=== PATIENT | female | born 1970 | race African-American/Black ===

== ENCOUNTER 2018-12-26 19:28 | Emergency (ER) | payer MEDICAID ==
[~2018-12-26] VITALS: Ht 167.6 cm; Wt 72.0 kg
[2018-12-26 19:53] LABS: BASOPHILS # (AUTO) 0.02 x10^3/uL (0-0.1); BASOPHILS % (AUTO) 0 % (0-1); EOSINOPHILS # (AUTO) 0.03 x10^3/uL (0-0.4); EOSINOPHILS % (AUTO) 0 % (1-7); LYMPHOCYTES # (AUTO) 1.75 x10^3/uL (1-3.4); LYMPHOCYTES % (AUTO) 19 % (22-44); MD NO; MEAN CORPUSCULAR HEMOGLOBIN 31.1 pg (27.0-34.8); MEAN CORPUSCULAR HGB CONC 33.9 g/dL (32.4-35.8); MEAN CORPUSCULAR VOLUME 91.7 fL (80-100); MEAN PLATELET VOLUME 7.7 fL (7.4-10.4); MONOCYTES # (AUTO) 0.54 x10^3/uL (0.2-0.8); MONOCYTES % (AUTO) 6 % (2-9); NEUTROPHILS # (AUTO) 6.81 x10^3/uL (1.8-6.8); NEUTROPHILS % (AUTO) 74 % (42-75); PLATELET COUNT 271 x10^3/uL (130-400); RED CELL DISTRIBUTION WIDTH 15.4 % (9.6-15.2)
[2018-12-26 20:02] LABS: ALANINE AMINOTRANSFERASE 17 U/L (12-78); ALBUMIN 3.6 g/dL (3.4-5.0); ANION GAP 6 mmol/L (5-15); CALCIUM 8.7 mg/dL (8.5-10.1); CHLORIDE 109 mmol/L (98-107); CREATININE 0.76 mg/dL (0.55-1.02)
[2018-12-26 20:06] LABS: ALKALINE PHOSPHATASE 71 U/L (45-117); BILIRUBIN,TOTAL 0.6 mg/dL (0.2-1.0); TOTAL PROTEIN 7.6 g/dL (6.4-8.2)
--- NOTE | 2018-12-26 20:51 | NUR ---
TO ROOM FROM LOBBY. NAD.
--- NOTE | 2018-12-26 20:53 | NUR ---
UA SENT TO LAB
[2018-12-26 21:04] LABS: MICROSCOPIC AUTO
[2018-12-26 21:10] LABS: CULTURE INDICATED? YES
[2018-12-26] MEDS ORDERED: MORPHINE SULFATE 4 MG/ML, 1ML IVPush PRN (21:30)
[2018-12-26] MEDS ORDERED: CEFTRIAXONE PMX 1GM/50ML 50 ML IV ONE (21:30)
[2018-12-26] MEDS ORDERED: KETOROLAC 30 MG/1 ML IVPush ONE (21:30)
[2018-12-26] MEDS ORDERED: SODIUM CHLORIDE 0.9% 1,000ML IV ONE (21:30)
[2018-12-26] MEDS ORDERED: ONDANSETRON 2MG/ML, 2ML IVPush ONE (21:30)
[2018-12-26] MEDS ORDERED: KETOROLAC 30 MG/1 ML ONE ×2 (21:32→22:33)
[2018-12-26] MEDS ORDERED: ONDANSETRON 2MG/ML, 2ML ONE (21:32)
[2018-12-26] MEDS ORDERED: MORPHINE SULFATE 4 MG/ML, 1ML ONE (21:32)
[2018-12-26] MEDS ORDERED: CEFTRIAXONE PMX 1GM/50ML 0 ML ONE (21:32)
--- NOTE | 2018-12-26 21:34 | NUR ---
JUAN ANTONIO RN: PT IN CT SCAN.
--- NOTE | 2018-12-26 21:45 | NUR ---
SBAR report received from RN, Keena. Pt back to room from imaging.
--- NOTE | 2018-12-26 21:47 | NUR ---
RN at bedside to start PIV and medicate pt, per DEC.
[2018-12-26] MEDS ORDERED: PLEASE ENTER ALLERGIES MC SCH (22:00)
--- NOTE | 2018-12-26 22:11 | NUR ---
Dr. Spencer at bedside to discuss ED findings and POC.
[2018-12-26] MEDS ORDERED: KETOROLAC 30 MG/1 ML IM ONE (22:30)
[2018-12-26] MEDS ORDERED: HYDROcodone/APAP 5/325 TABLET PO ONE (22:30)
[2018-12-26] MEDS ORDERED: ONDANSETRON ODT 4 MG PO ONE (22:30)
[2018-12-26] MEDS ORDERED: CEFDINIR 300 MG CAPSULE PO SCH (22:30)
[2018-12-26] MEDS ORDERED: CEFDINIR 300 MG CAPSULE ONE (22:33)
[2018-12-26] MEDS ORDERED: HYDROcodone/APAP 5/325 TABLET ONE (22:33)
[2018-12-26] MEDS ORDERED: ONDANSETRON ODT 4 MG ONE (22:33)
--- NOTE | 2018-12-26 22:48 | NUR ---
Pt medicated per DEC. POC disussed.
[2018-12-26 23:03] VITALS: BP 142/83
--- NOTE | 2018-12-26 23:03 | NUR ---
Patient/Caregiver given discharge instructions and they have confirmed that they understand the instructions. Patient ambulatory with steady gait.
[2018-12-26] MEDS ORDERED: CEFDINIR 300 MG CAPSULE PO ONE (23:30)
== END 2018-12-26 23:07 | disposition home or self-care (01) ==
LOC: ED 22:50
DX: N10 Acute pyelonephritis (principal); N28.1 Cyst of kidney, acquired
CPT/HCPCS: 36415; 74018; 74176; 76770; 80053; 81001; 84703; 85025; 87077; 87086; 96372; 99284; J1885; Q0162; 87186

== ENCOUNTER 2020-08-03 16:29 | Inpatient (IN) | payer MEDICAID ==
[~2020-08-03] VITALS: Ht 172.7 cm; Wt 101.1 kg
[2020-08-03] MEDS ORDERED: MORPHINE SULFATE 4 MG/ML, 1ML IVPush PRN (17:00)
[2020-08-03] MEDS ORDERED: SODIUM CHLORIDE 0.9% 1,000ML IVBOLUS ONE (17:00)
[2020-08-03] MEDS ORDERED: ONDANSETRON ODT 4 MG PO ONE (17:00)
[2020-08-03] MEDS ORDERED: MORPHINE SULFATE 4 MG/ML, 1ML ONE (17:15)
[2020-08-03] MEDS ORDERED: ONDANSETRON ODT 4 MG ONE (17:15)
[2020-08-03 17:26] LABS: BASOPHILS % (AUTO) 0 % (0-1); EOSINOPHILS % (AUTO) 0 % (1-7); LYMPHOCYTES % (AUTO) 10 % (22-44); MEAN CORPUSCULAR HEMOGLOBIN 30.3 pg (27.0-34.8); MEAN CORPUSCULAR HGB CONC 33.3 g/dL (32.4-35.8); MEAN PLATELET VOLUME 7.8 fL (7.4-10.4); MONOCYTES % (AUTO) 9 % (2-9); NEUTROPHILS % (AUTO) 80 % (42-75); PLATELET COUNT 296 x10^3/uL (130-400); RED BLOOD COUNT 4.66 x10^6/uL (3.82-5.3)
[2020-08-03 17:27] LABS: MD NO
[2020-08-03 17:37] LABS: ALBUMIN 3.6 g/dL (3.4-5.0); ANION GAP 9 mmol/L (5-15); CALCIUM 9.3 mg/dL (8.5-10.1); CHLORIDE 104 mmol/L (98-107); CREATININE 1.01 mg/dL (0.55-1.02)
[2020-08-03 17:51] LABS: MICROSCOPIC INDICATED
--- NOTE | 2020-08-03 18:07 | NUR ---
dr patel in room updating patient.
[2020-08-03] MEDS ORDERED: BUPR150T73 PO (18:09)
[2020-08-03] MEDS ORDERED: BUSP10TA PO (18:09)
[2020-08-03] MEDS ORDERED: AMIT50TA PO (18:10)
[2020-08-03] MEDS ORDERED: LAMO25TB2 PO (18:10)
[2020-08-03] MEDS ORDERED: CEFTRIAXONE PMX 1GM/50ML 50 ML ONE (18:13)
--- NOTE | 2020-08-03 18:16 | NUR ---
report given to NORM blue for break.
--- NOTE | 2020-08-03 18:18 | NUR ---
BREAK RN: PT MEDICATED TO DEC. CALL LIGHT AND PHONE IN HAND.
[2020-08-03] MEDS ORDERED: CEFTRIAXONE PMX 1GM/50ML 50 ML IV ONE (18:30)
--- NOTE | 2020-08-03 19:06 | NUR ---
PT TALKING ON PHONE IN ROOM. VS STABLE. NO ACUTE DISTRESSN NOTED. CALL LIGHT IN PLACE. WILL CONTINUE TO MONITOR.
[2020-08-03] MEDS ORDERED: IBUPROFEN 600 MG TABLET PO PRN (19:30)
[2020-08-03] MEDS ORDERED: ONDANSETRON ODT 4 MG PO PRN (19:30)
[2020-08-03] MEDS ORDERED: ONDANSETRON 2MG/ML, 2ML IVPush PRN (19:30)
[2020-08-03 20:12] VITALS: BP 164/95
[2020-08-03] MEDS ORDERED: ENALAPRILAT 1.25 MG/ML, 2ML IV PRN (20:30)
[2020-08-03] MEDS: BUPROPION SR 150 MG TABLET PO SCH (20:45)
[2020-08-03] MEDS: SODIUM CHLORIDE 0.9% 1,000 ML IV SCH (20:45)
[2020-08-03] MEDS: LAMOTRIGINE 25 MG TABLET PO SCH (20:45)
[2020-08-03] MEDS: BUSPIRONE 10 MG TABLET PO SCH (20:45)
[2020-08-03] MEDS: AMITRIPTYLINE 50 MG TABLET PO SCH (20:45)
[2020-08-03] MEDS: ACETAMINOPHEN 325 MG TABLET PO PRN (20:45)
[2020-08-03] MEDS: ENOXAPARIN 40 MG/0.4 ML SQ SCH (20:45)
[2020-08-04 00:37] VITALS: BP 144/87
[2020-08-04 05:02] LABS: BASOPHILS % (AUTO) 0 % (0-1); EOSINOPHILS % (AUTO) 0 % (1-7); LYMPHOCYTES % (AUTO) 12 % (22-44); MEAN CORPUSCULAR HEMOGLOBIN 30.4 pg (27.0-34.8); MEAN CORPUSCULAR HGB CONC 32.7 g/dL (32.4-35.8); MEAN PLATELET VOLUME 7.9 fL (7.4-10.4); MONOCYTES % (AUTO) 11 % (2-9); NEUTROPHILS % (AUTO) 76 % (42-75); PLATELET COUNT 257 x10^3/uL (130-400); RED BLOOD COUNT 3.97 x10^6/uL (3.82-5.3)
[2020-08-04] MEDS: ACETAMINOPHEN 325 MG TABLET PO PRN ×2 (05:08→09:26)
[2020-08-04] MEDS: SODIUM CHLORIDE 0.9% 1,000 ML IV SCH ×3 (05:08→21:14)
[2020-08-04 05:11] LABS: ANION GAP 7 mmol/L (5-15); CALCIUM 8.1 mg/dL (8.5-10.1); CHLORIDE 108 mmol/L (98-107); CREATININE 0.88 mg/dL (0.55-1.02); MD NO
[2020-08-04 06:48] VITALS: BP 127/83
[2020-08-04] MEDS: BUPROPION SR 150 MG TABLET PO SCH ×2 (09:19→21:13)
[2020-08-04] MEDS: BUSPIRONE 10 MG TABLET PO SCH ×2 (09:19→21:13)
[2020-08-04] MEDS: LAMOTRIGINE 25 MG TABLET PO SCH ×3 (09:19→21:13)
[2020-08-04 13:20] VITALS: BP 124/84
[2020-08-04] MEDS: ACETAMINOPHEN 325 MG TABLET PO SCH ×3 (14:00→21:13)
[2020-08-04] MEDS ORDERED: OXYcodone IR 5MG TABLET PO PRN (14:00)
[2020-08-04] MEDS ORDERED: CEFTRIAXONE PMX 1GM/50ML 50 ML IV SCH (15:00)
[2020-08-04 18:55] VITALS: BP 127/82
[2020-08-04] MEDS: AMITRIPTYLINE 50 MG TABLET PO SCH (21:13)
[2020-08-04] MEDS: ENOXAPARIN 40 MG/0.4 ML SQ SCH (21:14)
[2020-08-05] MEDS: ACETAMINOPHEN 325 MG TABLET PO SCH ×4 (00:16→12:08)
[2020-08-05 00:17] VITALS: BP 132/85
[2020-08-05] MEDS: SODIUM CHLORIDE 0.9% 1,000 ML IV SCH ×2 (04:45→12:09)
[2020-08-05 05:11] LABS: ANION GAP 4 mmol/L (5-15); BASOPHILS % (AUTO) 1 % (0-1); CALCIUM 8.2 mg/dL (8.5-10.1); CHLORIDE 113 mmol/L (98-107); EOSINOPHILS % (AUTO) 1 % (1-7); LYMPHOCYTES % (AUTO) 21 % (22-44); MEAN CORPUSCULAR HEMOGLOBIN 30.9 pg (27.0-34.8); MEAN CORPUSCULAR HGB CONC 33.1 g/dL (32.4-35.8); MEAN PLATELET VOLUME 7.9 fL (7.4-10.4); MONOCYTES % (AUTO) 12 % (2-9); NEUTROPHILS % (AUTO) 66 % (42-75); PLATELET COUNT 273 x10^3/uL (130-400); RED BLOOD COUNT 3.97 x10^6/uL (3.82-5.3); RED CELL DISTRIBUTION WIDTH 16.3 % (9.6-15.2)
[2020-08-05 05:12] LABS: CREATININE 0.86 mg/dL (0.55-1.02)
[2020-08-05 05:22] LABS: MD NO
[2020-08-05 06:53] VITALS: BP 132/85
[2020-08-05] MEDS: LAMOTRIGINE 25 MG TABLET PO SCH (08:11)
[2020-08-05] MEDS: BUPROPION SR 150 MG TABLET PO SCH (08:11)
[2020-08-05] MEDS: BUSPIRONE 10 MG TABLET PO SCH (08:11)
[2020-08-05] MEDS ORDERED: CEPH750C9 PO (12:12)
[2020-08-05 12:54] VITALS: BP 138/87
== END 2020-08-05 13:32 | disposition home or self-care (01) | DRG 872 ==
LOC: ED 18:16 → EDIP 18:22 → 3N 20:11 → DCLOUNGE 08-05 13:20
PROVIDERS: ADMIT Family Medicine; ATTEND Family Medicine
DX: A41.9 Sepsis, unspecified organism (principal); N10 Acute pyelonephritis; E87.1 Hypo-osmolality and hyponatremia; F41.9 Anxiety disorder, unspecified; Z87.442 Personal history of urinary calculi
CPT/HCPCS: 36415; 76770; 80048; 81001; 82040; 83605; 84145; 84703; 85025; 87040; 87077; 87086; 87186; 93005; G0378; J0696; J1650; Q0162; J2270; J7030

== ENCOUNTER 2020-10-06 15:15 | Emergency (ER) | payer MEDICAID ==
[~2020-10-06] VITALS: Ht 172.7 cm; Wt 95.8 kg
[~2020-10-06 15:15] MED LIST: AMIT50TA PO; BUPR150T73 PO; BUSP10TA PO; CEPH750C9 PO; LAMO25TB2 PO
[2020-10-06] MEDS ORDERED: ONDANSETRON 2MG/ML, 2ML IVPush ONE (15:30)
[2020-10-06] MEDS ORDERED: KETOROLAC 30 MG/1 ML IVPush ONE (15:30)
[2020-10-06] MEDS ORDERED: MORPHINE SULFATE 4 MG/ML, 1ML IVPush PRN (15:30)
[2020-10-06] MEDS ORDERED: SODIUM CHLORIDE 0.9% 1,000ML IVBOLUS ONE (15:30)
[2020-10-06] MEDS ORDERED: SODIUM CHLORIDE FLUSH 10ML SYR IVF ONE (15:30)
[2020-10-06 16:06] LABS: BASOPHILS % (AUTO) 1 % (0-1); EOSINOPHILS % (AUTO) 0 % (1-7); LYMPHOCYTES % (AUTO) 27 % (22-44); MD NO; MEAN CORPUSCULAR HEMOGLOBIN 30.4 pg (27.0-34.8); MEAN CORPUSCULAR HGB CONC 33.1 g/dL (32.4-35.8); MONOCYTES % (AUTO) 8 % (2-9); NEUTROPHILS % (AUTO) 64 % (42-75); PLATELET COUNT 385 x10^3/uL (130-400); RED BLOOD COUNT 4.74 x10^6/uL (3.82-5.3); RED CELL DISTRIBUTION WIDTH 16.1 % (9.6-15.2)
[2020-10-06 16:15] LABS: ALBUMIN 3.6 g/dL (3.4-5.0); ANION GAP 5 mmol/L (5-15); CALCIUM 10.7 mg/dL (8.5-10.1); CHLORIDE 107 mmol/L (98-107)
[2020-10-06 16:21] LABS: ALANINE AMINOTRANSFERASE 20 U/L (12-78); ALKALINE PHOSPHATASE 90 U/L (45-117); BILIRUBIN,TOTAL 0.5 mg/dL (0.2-1.0); TOTAL PROTEIN 8.1 g/dL (6.4-8.2)
[2020-10-06 16:26] LABS: MICROSCOPIC AUTO
[2020-10-06] MEDS ORDERED: CEFTRIAXONE PMX 1GM/50ML 50 ML IV ONE (17:00)
--- NOTE | 2020-10-06 17:02 | NUR ---
gin clerk: pt from lobby to room 31
[2020-10-06] MEDS ORDERED: KETOROLAC 30 MG/1 ML ONE (17:34)
[2020-10-06] MEDS ORDERED: CEFTRIAXONE PMX 1GM/50ML 50 ML ONE (17:34)
[2020-10-06] MEDS ORDERED: MORPHINE SULFATE 4 MG/ML, 1ML ONE (17:35)
[2020-10-06] MEDS ORDERED: ONDANSETRON 2MG/ML, 2ML ONE (17:35)
[2020-10-06 18:31] VITALS: BP 156/78
== END 2020-10-06 18:49 | disposition home or self-care (01) ==
LOC: ED 17:57
DX: N10 Acute pyelonephritis (principal); R10.9 Unspecified abdominal pain; F17.200 Nicotine dependence, unspecified, uncomplicated
CPT/HCPCS: 36415; 74176; 80053; 81001; 83605; 84145; 84703; 85025; 87040; 87077; 87086; 87186; 96365; 96375; 99284; J0696; J1885; J2270; J2405; J7030

== ENCOUNTER 2020-10-18 07:46 | Emergency (ER) | payer MEDICAID ==
[~2020-10-18] VITALS: Ht 172.7 cm; Wt 94.8 kg
[2020-10-18 07:48] VITALS: BP 139/80
[2020-10-18] MEDS ORDERED: MAALOX/HYOSCYAMINE/LIDOCAINE 45 ML BTL ONE (08:05)
--- NOTE | 2020-10-18 08:15 | NUR ---
PT C/O EPIGASTRIC PAIN FOR LAST 3 DAYS WITH N/V THIS AM THAT HAS RESOLVED. PT GIVEN GI COCKTAIL HERE WITH SIGNIFICANT RELEIF OF PAIN. PROVIDER AWARE. WAITING FOR LABS AND US. PT REPORTS BEING UNDER A LOT OF STRESS LATELY WITH BEING IN A DRUG TREATMENT PROGRAM.
[2020-10-18] MEDS ORDERED: ELDERBERRY PO (08:30)
[2020-10-18] MEDS ORDERED: BUSP30TA PO (08:30)
[2020-10-18] MEDS ORDERED: ZINC PO (08:30)
[2020-10-18] MEDS ORDERED: FLAX10004 PO (08:30)
[2020-10-18] MEDS ORDERED: TURMERIC PO (08:30)
[2020-10-18] MEDS ORDERED: BACI1TAB3 PO (08:30)
[2020-10-18] MEDS ORDERED: MAGN500T PO (08:30)
[2020-10-18] MEDS ORDERED: MAALOX/HYOSCYAMINE/LIDOCAINE 45 ML BTL PO ONE (08:30)
[2020-10-18] MEDS ORDERED: GARLIQUE PO (08:30)
[2020-10-18] MEDS ORDERED: MULT-248 PO (08:30)
[2020-10-18] MEDS ORDERED: APPLE CIDER VINEGAR PO (08:30)
[2020-10-18] MEDS ORDERED: ASCO100018 PO (08:30)
[2020-10-18] MEDS ORDERED: AMLO-150 PO (08:30)
[2020-10-18] MEDS ORDERED: BIOT800T PO (08:30)
[2020-10-18] MEDS ORDERED: CHOL10003 PO (08:30)
[2020-10-18 08:49] LABS: ALBUMIN 3.3 g/dL (3.4-5.0); ANION GAP 7 mmol/L (5-15); CALCIUM 8.6 mg/dL (8.5-10.1); CHLORIDE 112 mmol/L (98-107)
[2020-10-18 08:53] LABS: ALANINE AMINOTRANSFERASE 20 U/L (12-78); ALKALINE PHOSPHATASE 77 U/L (45-117); BILIRUBIN,TOTAL 0.4 mg/dL (0.2-1.0); CREATININE 0.91 mg/dL (0.55-1.02)
[2020-10-18 08:54] LABS: BASOPHILS % (AUTO) 1 % (0-1); EOSINOPHILS % (AUTO) 1 % (1-7); LYMPHOCYTES % (AUTO) 21 % (22-44); MEAN CORPUSCULAR HEMOGLOBIN 30.5 pg (27.0-34.8); MEAN CORPUSCULAR HGB CONC 33.7 g/dL (32.4-35.8); MEAN PLATELET VOLUME 8.4 fL (7.4-10.4); MONOCYTES % (AUTO) 6 % (2-9); NEUTROPHILS % (AUTO) 72 % (42-75); PLATELET COUNT 277 x10^3/uL (130-400); RED BLOOD COUNT 4.42 x10^6/uL (3.82-5.3); RED CELL DISTRIBUTION WIDTH 15.8 % (9.6-15.2)
[2020-10-18 08:56] LABS: MD NO
--- NOTE | 2020-10-18 09:18 | NUR ---
WAITING FOR US RESULTS.
--- NOTE | 2020-10-18 10:04 | NUR ---
REPORT TAKEN FROM CATHY. PT AMBULATED TO DISCHARGE WITH STEADY GAIT. PT ENCOURAGED TO RETURN TO THE ED WITH WORSENING SYPTOMS. PT EDUCATED TO FOLLOWUP DISCUSSED. VERBALIZED UNDERSTANDING.
== END 2020-10-18 10:05 | disposition home or self-care (01) ==
LOC: ED 08:03
DX: K29.00 Acute gastritis without bleeding (principal)
CPT/HCPCS: 36415; 76700; 80053; 83690; 85025; 99284